=== PATIENT | female | born 1955 | race Caucasian/White ===

== ENCOUNTER → 2020-09-16 | Day surgery (SDC) | payer OTHER ==
[~2020-09-16] MED LIST: ASPIRIN81 MG PO; BENADRYL ALLERG25 MG PO; FEROSUL325 MG PO; LEVOFLOXACIN500 MG PO; LEVOTHYROXINE75 MCG PO; LIPITOR40 MG PO; LOPRESSOR 25 MG25 MG PO; MELATONIN10 M2 PO; NICOTINE PATCH1 EAC5 TD; PHENERGAN 12.12.5 M1 PO; PLAVIX75 MG PO; PROTONIX IV40 MG IVP
== END | disposition home or self-care (01) ==
LOC: OR 06:23
DX: K29.71 Gastritis, unspecified, with bleeding (principal); K22.2 Esophageal obstruction; K56.50 Intestinal adhesions [bands], unspecified as to partial versus complete obstruction; K64.0 First degree hemorrhoids; K90.0 Celiac disease; E78.00 Pure hypercholesterolemia, unspecified; I10 Essential (primary) hypertension; I25.10 Atherosclerotic heart disease of native coronary artery without angina pectoris; I25.2 Old myocardial infarction; Z87.891 Personal history of nicotine dependence; Z91.041 Radiographic dye allergy status; Z88.8 Allergy status to other drugs, medicaments and biological substances; Z79.82 Long term (current) use of aspirin; Z79.02 Long term (current) use of antithrombotics/antiplatelets; Z79.899 Other long term (current) drug therapy
CPT/HCPCS: 94664; J2704; J7040